=== PATIENT | male | born 1945 | race Caucasian/White ===

== ENCOUNTER 2021-03-18 10:44 | Day surgery (SDC) | payer OTHER ==
[~2021-03-18] VITALS: Ht 172.7 cm; Wt 77.2 kg
[~2021-03-18 10:44] MED LIST: ASPI-630 PO; CHOL500016 PO; DEXAMETHASONE SOD PHOS 4 MG/ML VIAL ONE; DOCU100C28 PO; EVOL140P3 SQ; EZET10TA20 PO; FAMOTIDINE 20 MG/2 ML VIAL ONE; FENO134C PO; FISH400C4 PO; FOLI0.8T5 PO; GINS100C3 PO; HYDROmorphone 2 MG/ML INJ. IVP PRN; IV RINGERS,LACTATED 1000ML 1,000 ML IV SCH; LIDOCAINE 2% PF 5 ML VIAL. ONE; LIPITOR80 MG PO; MELA3TAB4 PO; METO-239 PO; MIDAZOLAM HCL/PF 2 MG/2 ML VIAL. ONE; MORPHINE SULFATE 2 MG/ML INJ. IVP PRN; MULT-445 PO; ONDANSETRON PF 4 MG/2 ML VIAL. ONE; PROCHLORPERAZINE 10 MG/2 ML VIAL. IVP PRN; PROPOFOL 10 MG/ML (20ML) VIAL. IV ONE; UBID50TA PO; VITA0.4T17 PO; [UNRECOGNIZED DRUG - CODE] PO; fentaNYL PF VIAL 100 MCG/2 ML VIAL IVP PRN; fentaNYL PF VIAL 100 MCG/2 ML VIAL ONE
[2021-03-18] MEDS ORDERED: BUPIVACAINE-EPI 0.5% 30 ML VIAL KIT. ONE (11:18)
--- NOTE | 2021-03-18 11:39 | PDOC1 ---
History and Physical Date of Admission Date of Admission DATE: 03/18/21 TIME: 11:37 History of Present Illness History of Present Illness The patient is a 75-year-old male who is referred with a right inguinal hernia. He has noticed a bulge in the right groin for the last couple of years. He denies much discomfort but over time he states it has enlarged. Past Medical History Cardiovascular: HTN, Hyperlipidemia Renal/: Prostate Ca. Past Surgical History Past Surgical History Radical prostatectomy, cataract Social History Smoke: <1 pack per day ALCOHOL: occassional Current Medications Current Medications Current Medications Fentanyl Citrate (Fentanyl 2ml Vial) 25 mcg PRN Q5MIN PRN IVP MILD PAIN 1-3; Start 03/18/21 at 06:00; Stop 03/19/21 at 05:59 Fentanyl Citrate (Fentanyl 2ml Vial) 50 mcg PRN Q5MIN PRN IVP MODERATE PAIN 4- 6; Start 03/18/21 at 06:00; Stop 03/19/21 at 05:59 Morphine Sulfate (Morphine Sulfate) 1 mg PRN Q10MIN PRN IVP SEVERE PAIN 7-10; Start 03/18/21 at 06:00; Stop 03/19/21 at 05:59 Ringer's Solution 1,000 ml @ 30 mls/hr Q24H IV ; Start 03/18/21 at 06:00; Stop 03/18/21 at 17:59 Hydromorphone HCl (Dilaudid) 0.5 mg PRN Q10MIN PRN IVP SEVERE PAIN 7-10, 2nd CHOICE; Start 03/18/21 at 06:00; Stop 03/19/21 at 05:59 Prochlorperazine Edisylate (Compazine) 5 mg PACU PRN PRN IVP NAUSEA, MRX1; Start 03/18/21 at 06:00; Stop 03/19/21 at 05:59 Cefazolin Sodium/ Dextrose 50 ml @ 100 mls/hr 1X PREOP PRN IV PRIOR TO PROCEDURE; Start 03/18/21 at 06:00; Stop 03/18/21 at 18:00 Lidocaine HCl (Lidocaine Pf 2% Vial) 5 ml STK-MED ONCE .ROUTE ; Start 03/18/21 at 10:28; Stop 03/18/21 at 10:28; Status DC Propofol (Diprivan) 200 mg STK-MED ONCE IV ; Start 03/18/21 at 10:28; Stop 03/18/21 at 10:28; Status DC Famotidine (Pepcid Vial) 20 mg STK-MED ONCE .ROUTE ; Start 03/18/21 at 10:28; Stop 03/18/21 at 10:28; Status DC Ondansetron HCl (Zofran) 4 mg STK-MED ONCE .ROUTE ; Start 03/18/21 at 10:28; Stop 03/18/21 at 10:28; Status DC Dexamethasone Sodium Phosphate (Decadron) 4 mg STK-MED ONCE .ROUTE ; Start 03/18/21 at 10:28; Stop 03/18/21 at 10:28; Status DC Fentanyl Citrate (Fentanyl 2ml Vial) 100 mcg STK-MED ONCE .ROUTE ; Start 03/18/21 at 10:28; Stop 03/18/21 at 10:28; Status DC Midazolam HCl (Versed) 2 mg STK-MED ONCE .ROUTE ; Start 03/18/21 at 10:28; Stop 03/18/21 at 10:29; Status DC Bupivacaine HCl/ Epinephrine Bitart (Sensorcain-Epi 0.5% Kit) 30 ml STK-MED ONCE .ROUTE ; Start 03/18/21 at 11:18; Stop 03/18/21 at 11:18; Status DC Active Scripts Active Reported Docusate Sodium 100 Mg Capsule 100 Mg PO DAILY Ginseng 100 Mg Capsule 100 Mg PO DAILY Beta Carotene (Beta-Carotene) 10,000 Unit Capsule 1 Cap PO DAILY Super B Maxi Complex Caplet (Vitamin B Complex/Folic Acid) 0.4 Mg Tablet 0.4 Mg PO DAILY Coq10 (Ubidecarenone) 50 Mg Tab.chew 100 Mg PO QODAY Folic Acid 0.8 Mg Tablet 0.8 Mg PO BID Vitamin D3 (Cholecalciferol (Vitamin D3)) 125 Mcg Tablet 125 Mcg PO DAILY Lipitor (Atorvastatin Calcium) 80 Mg Tablet 80 Mg PO HS Metoprolol Succinate ( Xl ) (Metoprolol Succinate) 25 Mg Tab.er.24h 25 Mg PO HS Fenofibrate (Fenofibrate,Micronized) 134 Mg Capsule 134 Mg PO HS Zetia (Ezetimibe) 10 Mg Tablet 10 Mg PO HS Aspirin 81 Mg Tab.chew 81 Mg PO DAILY Multivitamins (Multivitamin) 1 Each Tablet 1 Each PO DAILY Melatonin 3 Mg Tablet 1 Tab PO QHS [place] 3-6-9 Complex Softgel (Fish Oil/Borage/Flax/Om3,6,9#1) 400 Mg Capsule 1 Cap PO DAILY 30 Days Repatha Sureclick (Evolocumab) 140 Mg/1 Ml Pen.injctr 140 Mg SQ Q2WKS Allergies Allergies: Coded Allergies: No Known Drug Allergies (Unverified , 03/18/21) ROS General: No: Chills, Night Sweats, Fatigue, Malaise, Appetite, Other PSYCHOLOGICAL ROS: No: Anxiety, Behavioral Disorder, Concentration difficultie, Decreased libido, Depression, Disorientation, Hallucinations, Hostility, Irritablity, Memory difficulties, Mood Swings, Obsessive thoughts, Physical abuse, Sexual abuse, Sleep disturbances, Suicidal ideation, Other Eyes: No Blurry vision, No Decreased vision, No Double vision, No Dry eyes, No Excessive tearing, No Eye Pain, No Itchy Eyes, No Loss of vision, No Photophobia, No Scotomata, No Uses contacts, No Uses glasses, No Other HEENT: No: Heacaches, Visual Changes, Hearing change, Nasal congestion, Nasal discharge, Oral lesions, Sinus pain, Sore Throat, Epistaxis, Sneezing, Snoring, Tinnitus, Vertigo, Vocal changes, Other ALLERGY AND IMMUNOLOGY: No: Hives, Insect Bite Sensitivity, Itchy/Watery Eyes, Nasal Congestion, Post Nasal Drip, Seasonal Allergies, Other Hematological and Lymphatic: No: Bleeding Problems, Blood Clots, Blood Transfusions, Brusing, Night Sweats, Pallor, Swollen Lymph Nodes, Other Respiratory: No: Cough, Hemoptysis, Orthopnea, Pleuritic Pain, Shortness of breath, SOB with excertion, Sputum Changes, Stridor, Tachypnea, Wheezing, Other Cardiovascular: No Chest Pain, No Palpitations, No Orthopnea, No Paroxysmal Noc. Dyspnea, No Edema, No Lt Headedness, No Other Gastrointestinal: No Nausea, No Vomiting, No Abdominal Pain, No Diarrhea, No Constipation, No Melena, No Hematochezia, No Other Genitourinary: No Dysuria, No Frequency, No Incontinence, No Hematuria, No Retention, No Discharge, No Urgency, No Pain, No Flank Pain, No Other, No , No , No , No , No , No , No Musculoskeletal: No Gait Disturbance, No Joint Pain, No Joint Stiffness, No Itzel int Swelling, No Muscle Pain, No Muscular Weakness, No Pain In:, No Swelling In:, No Other Neurological: No Behavorial Changes, No Bowel/Bladder ControlChng, No Confusion, No Dizziness, No Gait Disturbance, No Headaches, No Impaired C oord/balance, No Memory Loss, No Numbness/Tingling, No Seizures, No Speech Problems, No Tremors, No Visual Changes, No Weakness, No Other Skin: No Dry Skin, No Eczema, No Hair Changes, No Lumps, No Mole Changes, No Mottling, No Nail Changes, No Pruritus, No Rash, No Skin Lesion Changes, No Other, No Acne Physical Exam General: Alert, Oriented X3, Cooperative, No acute distress HEENT: Atraumatic Lungs: Clear to auscultation Heart: S1S2, RRR Abdomen: Soft Male Genitals Exam: hernia mass (Reducible moderate to large right inguinal hernia present) Rectal Exam: not examined Extremities: No clubbing, No cyanosis Skin: No rashes, No breakdown Neuro: Normal speech Psych/Mental Status: Mental status NL VTE Prophylaxis Ordered VTE Prophylaxis Devices: Yes VTE Pharmacological Prophylaxi: No Assessment/Plan Assessment/Plan Right inguinal hernia, plan for operative repair. The details of surgery were discussed including use of mesh. The risks of surgery were also reviewed with the patient. He understands and would like to proceed Justifications for Admission Other Justification MAXIMUS AVILES MD Mar 18, 2021 11:39
[2021-03-18 11:44] VITALS: BP 179/87
[2021-03-18] MEDS ORDERED: MORPHINE SULFATE 10 MG/ML VIAL. ONE (12:28)
--- NOTE | 2021-03-18 13:32 | PDOC4 ---
Operative Note Operative Note Operative Note: Preoperative Diagnosis: Right inguinal hernia Postoperative Diagnosis: Same Procedure: Right inguinal hernia repair with mesh Surgeon: Robbie Registered Dental Assistant: TIFFANIE Ingram Stephen Cherny MS 3 Anesthesia: General EBL: 10 mL Specimen: Inguinal hernia sac to pathology Drains: None Complications: None Indication: The patient is a 75-year-old male who is referred with a sizable right inguinal hernia. He was offered surgical repair. The risks of surgery were discussed which include bleeding, infection, recurrence, pain, anesthetic risk, potential need for additional surgery or procedure. He understands and would like to proceed. Description: The patient was taken to the operating room and placed supine in the operating table. General anesthesia was performed. The right groin was shaved and prepped with ChloraPrep and draped with sterile towels, sheets, and an Ioban. An incision was made in the skin lines with a scalpel. Cautery dissection was carried down to the external oblique aponeurosis. The aponeurosis was opened down to the external ring. The contents of the inguinal canal were digitally mobilized and encircled with a Wilsey drain. There was a moderate to large sized indirect hernia sac present. This was mobilized from the surrounding structures down to its base. The sac was amputated near its base and the redundant portion was excised and sent to pathology. The stump was oversewn with 2-0 Vicryl and inverted. The defect was filled with an extra- large Phasix mesh plug. The plug was sutured into position with 2-0 Vicryl. T he entire inguinal floor was reinforced with a Prolene keyhole mesh patch. The mesh was sutured into position with 2-0 Vicryl. The external oblique was closed over the mesh with 2-0 Vicryl. The subcutaneous tissue was approximated with 3- 0 Vicryl. Skin was closed with 4-0 Monocryl and infiltrated with half percent Marcaine with epinephrine. Steri-Strips and a sterile dressing were applied. The patient tolerated the procedure well and was sent to the recovery room in stable condition. At the end of the case all counts were correct. MAXIMUS AVILES MD Mar 18, 2021 13:32
[2021-03-18] MEDS ORDERED: HYDR-2761 PO (13:34)
--- NOTE | 2021-03-18 13:36 | DISCH ---
DISCHARGE INSTRUCTIONS Condition on Discharge Condition on Discharge: Stable Activity After Discharge Activity Instructions for Disc: Other, see below (No lifting over 20 lbs or strenuous activity X 4 weeks) Diet after Discharge Diet after Discharge: Regular Wound Incision Care Wound/Incision Care: Other, see below (keep dressing clean and dry X 72 hours, may then remove and shower, apply ice to area as per prior instructions) Follow-Up Follow up with: Dr Aviles in office in 2 weeks, call for appointment [phone] MAXIMUS AVILES MD Mar 18, 2021 13:36
[2021-03-18] MEDS ORDERED: HYDROcodone/APAP 5/325MG 1 TAB TABLET PO ONE (14:00)
[2021-03-18 14:23] VITALS: BP 140/84
== END 2021-03-18 15:00 | disposition home or self-care (01) ==
LOC: SURG 10:44
PROVIDERS: ATTEND Surgery
DX: K40.90 Unilateral inguinal hernia, without obstruction or gangrene, not specified as recurrent (principal); I10 Essential (primary) hypertension; E78.00 Pure hypercholesterolemia, unspecified; M19.90 Unspecified osteoarthritis, unspecified site; Z87.891 Personal history of nicotine dependence; Z79.82 Long term (current) use of aspirin; Z79.899 Other long term (current) drug therapy; Z98.890 Other specified postprocedural states; Z72.89 Other problems related to lifestyle
CPT/HCPCS: 49505; J0690; J1100; J2250; J2270; J2405; J2704; J3010; J3490; A4209; A4364; A4452; A4930; A6402; C1781